=== PATIENT | male | born 1935 | race Caucasian/White ===

== ENCOUNTER → 2016-06-02 | Outpatient (REF) | payer MEDICARE, MEDICAID ==
[2016-06-02 11:18] LABS: MEAN CORPUSCULAR HEMOGLOBIN 27.4 pg (27.0-33.0); MEAN CORPUSCULAR VOLUME 85.6 fl (80.0-96.0); RED CELL DISTRIBUTION WIDTH 14.1 % (11.5-14.5); WHITE BLOOD COUNT 7.5 K/mm3 (4.0-10.0)
[2016-06-02 11:39] LABS: CALCIUM LEVEL 8.4 MG/DL (8.8-10.2); CREATININE FOR GFR 1.51 MG/DL (0.70-1.30); FREE T4 1.31 NG/DL (0.76-1.46); GLOMERULAR FILTRATION RATE 47.6 (>35)
== END ==
LOC: M SFHCPLAZ 08:21
PROVIDERS: ATTEND Family Medicine
DX: N18.3 Chronic kidney disease, stage 3 (moderate) (principal); E03.8 Other specified hypothyroidism; I11.9 Hypertensive heart disease without heart failure

== ENCOUNTER 2017-01-07 22:21 | Emergency (ER) | payer MEDICARE, MEDICAID ==
[~2017-01-07] VITALS: Ht 170.2 cm; Wt 77.3 kg
[2017-01-07 22:21] VITALS: BP 186/90
[2017-01-07] MEDS ORDERED: LEVO50TA5 (22:32)
[2017-01-07] MEDS ORDERED: OMEP20CA3 (22:32)
[2017-01-07] MEDS ORDERED: ATOR40TA75 (22:32)
[2017-01-07] MEDS ORDERED: TRIAMT/HCTZ (22:32)
[2017-01-07] MEDS ORDERED: ASPI81TA85 PO (22:32)
[2017-01-07] MEDS ORDERED: FLEEENE12 PR (23:24)
[2017-01-07] MEDS ORDERED: MAGNESIUM CITRATE 300 ML BTL PO ONE (23:30)
--- NOTE | 2017-01-08 08:50 | REP ---
Clinical: Constipation. Technique: Single supine view of the abdomen and pelvis. Findings: Bowel gas pattern is nonspecific. No organomegaly. No abnormal calcifications. Skeletal structures demonstrate age-related degenerative changes. Impression: Nonspecific bowel gas pattern Signed by Nathan Ly MD 01/08/2017 08:41 A
== END 2017-01-07 23:38 | disposition home or self-care (01) ==
LOC: M ED 22:21
DX: K59.00 Constipation, unspecified (principal); I10 Essential (primary) hypertension; E78.5 Hyperlipidemia, unspecified; E03.9 Hypothyroidism, unspecified; K21.9 Gastro-esophageal reflux disease without esophagitis; Z79.899 Other long term (current) drug therapy; Z79.82 Long term (current) use of aspirin; Z87.891 Personal history of nicotine dependence

== ENCOUNTER 2017-02-02 08:11 | Emergency (ER) | payer MEDICARE, MEDICAID ==
[~2017-02-02] VITALS: Ht 177.8 cm; Wt 78.2 kg
[~2017-02-02 08:11] MED LIST: ASPI81TA85 PO; ATOR40TA75 PO; FLEEENE12 PR; LEVO50TA5 PO; OMEP20CA3 PO; TRIAMT/HCTZ PO
[2017-02-02] MEDS ORDERED: VITA-112 PO (08:23)
[2017-02-02] MEDS ORDERED: FISH100049 PO (08:23)
[2017-02-02 09:18] LABS: MEAN CORPUSCULAR HEMOGLOBIN 27.5 pg (27.0-33.0); PLATELET COUNT, AUTOMATED 296 10^3/uL (150-450); RED CELL DISTRIBUTION WIDTH 14.6 % (11.5-14.5); WHITE BLOOD COUNT 7.4 10^3/uL (4.0-10.0)
[2017-02-02] MEDS ORDERED: ANUS25SU PR (09:35)
[2017-02-02] MEDS ORDERED: COLA100C5 PO (09:35)
[2017-02-02 10:06] VITALS: BP 133/62
[2017-02-06] MEDS ORDERED: COLA100C5 PO (02:16)
[2017-02-06] MEDS ORDERED: DYAZ37.5 PO (02:18)
== END 2017-02-02 10:07 | disposition home or self-care (01) ==
LOC: EDBD 08:11 → M ED 08:11
DX: K62.5 Hemorrhage of anus and rectum (principal); K64.9 Unspecified hemorrhoids; K59.00 Constipation, unspecified; I10 Essential (primary) hypertension; F10.10 Alcohol abuse, uncomplicated; Z79.82 Long term (current) use of aspirin; Z79.899 Other long term (current) drug therapy

== ENCOUNTER 2017-02-05 23:10 | Inpatient (IN) | payer MEDICARE, MEDICAID ==
[2017-02-05] MEDS: NS 500 ML IV (23:30)
[2017-02-06 00:21] LABS: BASO # 0.1 10^3/uL (0.0-0.2); BASO % 0.9 % (0.0-1.0); EOS # 0.1 10^3/uL (0.0-0.50); EOS % 1.4 % (0.0-3.0); IMMATURE GRANULOCYTE # 0.1 10^3/uL (0-0); IMMATURE GRANULOCYTE % 0.8 % (0-0); LYMPH # 1.2 10^3/uL (1.5-4.5); LYMPH % 15.6 % (24.0-44.0); MEAN CORPUSCULAR HEMOGLOBIN 26.8 pg (27.0-33.0); MEAN CORPUSCULAR VOLUME 81.3 fl (80.0-96.0); MONO # 0.9 10^3/uL (0.0-0.8); MONO % 11.4 % (0.0-5.0); NEUTROPHILS # 5.5 10^3/uL (1.8-7.7); NEUTROPHILS % 69.9 % (36.0-66.0); PLATELET COUNT, AUTOMATED 303 10^3/uL (150-450); WHITE BLOOD COUNT 7.9 10^3/uL (4.0-10.0)
[2017-02-06 00:25] LABS: INR 1.06
[2017-02-06 00:31] LABS: LACTIC ACID SEPSIS PROTOCOL 1.6 MMOL/L (0.4-2.0)
[2017-02-06 00:32] LABS: ALBUMIN 2.9 GM/DL (3.2-5.2); ALBUMIN/GLOBULIN RATIO 0.81 (1.00-1.93); ALKALINE PHOSPHATASE 97 U/L (45-117); ALT/SGPT 17 U/L (12-78); ANION GAP 10 MEQ/L (8-16); AST/SGOT 29 U/L (7-37); BILIRUBIN,DIRECT 0.1 MG/DL (0.0-0.2); BILIRUBIN,TOTAL 0.5 MG/DL (0.2-1.0); BLOOD UREA NITROGEN 16 MG/DL (7-18); CALCIUM LEVEL 8.5 MG/DL (8.8-10.2); CARBON DIOXIDE LEVEL 30 MEQ/L (21-32); CHLORIDE LEVEL 98 MEQ/L (98-107); CREATININE FOR GFR 1.32 MG/DL (0.70-1.30); GLOMERULAR FILTRATION RATE 55.4 (>35); GLUCOSE, FASTING 107 MG/DL (83-110); POTASSIUM SERUM 3.7 MEQ/L (3.5-5.1); SODIUM LEVEL 138 MEQ/L (136-145); TOTAL PROTEIN 6.5 GM/DL (6.4-8.2)
[2017-02-06] MEDS ORDERED: ISOVUE-370 76% 100ML VIAL (Q9967) As Ordered (00:43)
[2017-02-06] MEDS ORDERED: ACETAMINOPHEN TAB 650MG DOSE (2X325MG) PO (02:15)
[2017-02-06] MEDS ORDERED: ONDANSETRON 4MG/2ML VIAL (J2405) IV (02:15)
[2017-02-06] MEDS: NS 1,000 ML IV (05:52)
[2017-02-06 06:26] LABS: MEAN CORPUSCULAR HEMOGLOBIN 27.1 pg (27.0-33.0); MEAN CORPUSCULAR HGB CONC 33.1 g/dl (32.0-36.5); MEAN CORPUSCULAR VOLUME 81.9 fl (80.0-96.0); PLATELET COUNT, AUTOMATED 294 10^3/uL (150-450); RED CELL DISTRIBUTION WIDTH 15.3 % (11.5-14.5); WHITE BLOOD COUNT 6.7 10^3/uL (4.0-10.0)
[2017-02-06 06:46] LABS: ANION GAP 7 MEQ/L (8-16); BLOOD UREA NITROGEN 14 MG/DL (7-18); CALCIUM LEVEL 8.2 MG/DL (8.8-10.2); CARBON DIOXIDE LEVEL 30 MEQ/L (21-32); CHLORIDE LEVEL 99 MEQ/L (98-107); CREATININE FOR GFR 1.28 MG/DL (0.70-1.30); GLOMERULAR FILTRATION RATE 57.4 (>35); GLUCOSE, FASTING 106 MG/DL (83-110); POTASSIUM SERUM 3.5 MEQ/L (3.5-5.1); SODIUM LEVEL 136 MEQ/L (136-145)
[2017-02-06] MEDS: OMEPRAZOLE 20 MG CAP PO (08:26)
[2017-02-06] MEDS: ATORVASTATIN 20 MG TAB PO (08:26)
[2017-02-06] MEDS: DOCUSATE SODIUM 100 MG CAP PO (08:26)
[2017-02-06] MEDS ORDERED: OMEGA-3 1050MG CAPSULE PO (09:00)
[2017-02-06 12:04] LABS: MEAN CORPUSCULAR HEMOGLOBIN 27.3 pg (27.0-33.0); MEAN CORPUSCULAR HGB CONC 33.1 g/dl (32.0-36.5); MEAN CORPUSCULAR VOLUME 82.7 fl (80.0-96.0); PLATELET COUNT, AUTOMATED 264 10^3/uL (150-450); RED CELL DISTRIBUTION WIDTH 15.4 % (11.5-14.5); WHITE BLOOD COUNT 6.8 10^3/uL (4.0-10.0)
[2017-02-06] MEDS: LEVOTHYROXINE 50MCG TABLET (0.05MG) PO (15:58)
[2017-02-06 18:46] LABS: MAGNESIUM LEVEL 2.2 MG/DL (1.8-2.4)
[2017-02-07 03:28] LABS: POTASSIUM SERUM 3.5 MEQ/L (3.5-5.1)
[2017-02-07 04:56] LABS: MEAN CORPUSCULAR HEMOGLOBIN 27.1 pg (27.0-33.0); MEAN CORPUSCULAR HGB CONC 33.2 g/dl (32.0-36.5); MEAN CORPUSCULAR VOLUME 81.6 fl (80.0-96.0); PLATELET COUNT, AUTOMATED 285 10^3/uL (150-450); RED CELL DISTRIBUTION WIDTH 15.2 % (11.5-14.5)
[2017-02-07 05:16] LABS: ANION GAP 8 MEQ/L (8-16); BLOOD UREA NITROGEN 13 MG/DL (7-18); CARBON DIOXIDE LEVEL 28 MEQ/L (21-32); CHLORIDE LEVEL 101 MEQ/L (98-107); CREATININE FOR GFR 1.12 MG/DL (0.70-1.30); GLOMERULAR FILTRATION RATE > 60.0 (>35); GLUCOSE, FASTING 98 MG/DL (83-110); POTASSIUM SERUM 3.4 MEQ/L (3.5-5.1); SODIUM LEVEL 137 MEQ/L (136-145)
[2017-02-07] MEDS: DOCUSATE SODIUM 100 MG CAP PO (08:03)
[2017-02-07] MEDS: ATORVASTATIN 20 MG TAB PO (08:03)
[2017-02-07] MEDS: OMEPRAZOLE 20 MG CAP PO (08:04)
[2017-02-07] MEDS: DYAZIDE 37.5/25 CAP (TRIAM/HCTZ) PO (12:05)
[2017-02-07] MEDS: LEVOTHYROXINE 50MCG TABLET (0.05MG) PO (16:44)
[2017-02-08 04:16] LABS: MEAN CORPUSCULAR HEMOGLOBIN 27.3 pg (27.0-33.0); MEAN CORPUSCULAR HGB CONC 33.5 g/dl (32.0-36.5); MEAN CORPUSCULAR VOLUME 81.4 fl (80.0-96.0); PLATELET COUNT, AUTOMATED 261 10^3/uL (150-450); RED CELL DISTRIBUTION WIDTH 15.1 % (11.5-14.5); WHITE BLOOD COUNT 7.4 10^3/uL (4.0-10.0)
[2017-02-08 04:32] LABS: ANION GAP 7 MEQ/L (8-16); BLOOD UREA NITROGEN 12 MG/DL (7-18); CALCIUM LEVEL 7.9 MG/DL (8.8-10.2); CARBON DIOXIDE LEVEL 29 MEQ/L (21-32); CHLORIDE LEVEL 100 MEQ/L (98-107); CREATININE FOR GFR 1.04 MG/DL (0.70-1.30); GLOMERULAR FILTRATION RATE > 60.0 (>35); GLUCOSE, FASTING 107 MG/DL (83-110); POTASSIUM SERUM 3.2 MEQ/L (3.5-5.1); SODIUM LEVEL 136 MEQ/L (136-145)
[2017-02-08] MEDS: DOCUSATE SODIUM 100 MG CAP PO (08:52)
[2017-02-08] MEDS: ATORVASTATIN 20 MG TAB PO (08:52)
[2017-02-08] MEDS: OMEPRAZOLE 20 MG CAP PO (08:52)
[2017-02-08] MEDS: DYAZIDE 37.5/25 CAP (TRIAM/HCTZ) PO (08:53)
[2017-02-08] MEDS: POTASSIUM CHLORIDE 10 MEQ SR TABLET PO (12:31)
[2017-02-08] MEDS: GOLYTELY SOLN 4000 ML BTL PO (16:23)
[2017-02-08] MEDS: LEVOTHYROXINE 50MCG TABLET (0.05MG) PO (16:23)
[2017-02-08] MEDS: BISACODYL 5 MG TAB PO (18:12)
[2017-02-09 05:13] LABS: MEAN CORPUSCULAR HEMOGLOBIN 27.1 pg (27.0-33.0); MEAN CORPUSCULAR HGB CONC 33.3 g/dl (32.0-36.5); MEAN CORPUSCULAR VOLUME 81.2 fl (80.0-96.0); PLATELET COUNT, AUTOMATED 314 10^3/uL (150-450); RED CELL DISTRIBUTION WIDTH 15.1 % (11.5-14.5); WHITE BLOOD COUNT 9.1 10^3/uL (4.0-10.0)
[2017-02-09 05:27] LABS: ANION GAP 9 MEQ/L (8-16); BLOOD UREA NITROGEN 7 MG/DL (7-18); CARBON DIOXIDE LEVEL 25 MEQ/L (21-32); CHLORIDE LEVEL 100 MEQ/L (98-107); CREATININE FOR GFR 1.06 MG/DL (0.70-1.30); GLOMERULAR FILTRATION RATE > 60.0 (>35); GLUCOSE, FASTING 112 MG/DL (83-110); POTASSIUM SERUM 3.2 MEQ/L (3.5-5.1); SODIUM LEVEL 134 MEQ/L (136-145)
[2017-02-09] MEDS: LEVOTHYROXINE 50MCG TABLET (0.05MG) PO (05:33)
[2017-02-09] MEDS: ATORVASTATIN 20 MG TAB PO (08:45)
[2017-02-09] MEDS: DYAZIDE 37.5/25 CAP (TRIAM/HCTZ) PO (08:45)
[2017-02-09] MEDS: OMEPRAZOLE 20 MG CAP PO (08:46)
[2017-02-09] MEDS: POTASSIUM CHLORIDE 10 MEQ SR TABLET PO (08:46)
[2017-02-09] MEDS: DOCUSATE SODIUM 100 MG CAP PO (08:46)
[2017-02-09] MEDS: KCL 10MEQ IN 100ML SWI (KRUN) 10 MEQ in APPROPRIATE DILUENT 1 EA IV ×4 (09:53→13:14)
[2017-02-09 10:17] LABS: MAGNESIUM LEVEL 1.9 MG/DL (1.8-2.4)
[2017-02-09] MEDS ORDERED: PROPOFOL 200 MG/20 ML VIAL As Ordered (15:00)
[2017-02-09] MEDS ORDERED: LIDOCAINE 2% INJ 100 MG/5 ML SDV (FOR ANES.) As Ordered (15:36)
[2017-02-09] MEDS ORDERED: ONDANSETRON 4MG/2ML VIAL (J2405) IV (15:45)
[2017-02-10] MEDS: LEVOTHYROXINE 50MCG TABLET (0.05MG) PO (05:34)
[2017-02-10 06:46] LABS: MEAN CORPUSCULAR HEMOGLOBIN 27.5 pg (27.0-33.0); MEAN CORPUSCULAR HGB CONC 33.2 g/dl (32.0-36.5); PLATELET COUNT, AUTOMATED 332 10^3/uL (150-450); RED CELL DISTRIBUTION WIDTH 15.7 % (11.5-14.5); WHITE BLOOD COUNT 8.4 10^3/uL (4.0-10.0)
[2017-02-10 07:16] LABS: ANION GAP 10 MEQ/L (8-16); BLOOD UREA NITROGEN 9 MG/DL (7-18); CALCIUM LEVEL 8.4 MG/DL (8.8-10.2); CARBON DIOXIDE LEVEL 26 MEQ/L (21-32); CHLORIDE LEVEL 101 MEQ/L (98-107); CREATININE FOR GFR 1.38 MG/DL (0.70-1.30); GLOMERULAR FILTRATION RATE 52.6 (>35); GLUCOSE, FASTING 125 MG/DL (83-110); SODIUM LEVEL 137 MEQ/L (136-145)
[2017-02-10] MEDS: OMEPRAZOLE 20 MG CAP PO (08:40)
[2017-02-10] MEDS: DOCUSATE SODIUM 100 MG CAP PO (08:40)
[2017-02-10] MEDS: POTASSIUM CHLORIDE 10 MEQ SR TABLET PO (08:40)
[2017-02-10] MEDS: ATORVASTATIN 20 MG TAB PO (08:40)
[2017-02-10] MEDS: DYAZIDE 37.5/25 CAP (TRIAM/HCTZ) PO (08:41)
== END 2017-02-10 13:36 | disposition home or self-care (01) | DRG 378 ==
LOC: M ED 23:10 → M PCU 02-09 17:48 → M MSPAV 02-09 20:02 → M ED INP 02-06 02:14 → M PCU 02-06 02:44 → M ED INP 02-06 02:44 → M PCU 02-06 05:13
PROC: 0DJD8ZZ Inspection of Lower Intestinal Tract, Via Natural or Artificial Opening Endoscopic (ICD-10-PCS; principal; 2017-02-09 14:30)
DX: K62.5 Hemorrhage of anus and rectum (principal); C34.81 Malignant neoplasm of overlapping sites of right bronchus and lung; K57.30 Diverticulosis of large intestine without perforation or abscess without bleeding; E87.6 Hypokalemia; I10 Essential (primary) hypertension; E03.9 Hypothyroidism, unspecified; E78.5 Hyperlipidemia, unspecified; K21.9 Gastro-esophageal reflux disease without esophagitis; Z87.891 Personal history of nicotine dependence; Z79.82 Long term (current) use of aspirin; Z79.899 Other long term (current) drug therapy; K64.4 Residual hemorrhoidal skin tags; K64.8 Other hemorrhoids

== ENCOUNTER → 2017-02-23 | Outpatient (REF) | payer MEDICARE, MEDICAID ==
[2017-02-23 14:05] LABS: ANION GAP 8 MEQ/L (8-16); BLOOD UREA NITROGEN 14 MG/DL (7-18); CALCIUM LEVEL 8.6 MG/DL (8.8-10.2); CARBON DIOXIDE LEVEL 28 MEQ/L (21-32); CHLORIDE LEVEL 105 MEQ/L (98-107); CREATININE FOR GFR 1.08 MG/DL (0.70-1.30); GLOMERULAR FILTRATION RATE > 60.0 (>35); GLUCOSE, FASTING 97 MG/DL (83-110); POTASSIUM SERUM 3.8 MEQ/L (3.5-5.1); SODIUM LEVEL 141 MEQ/L (136-145)
== END ==
LOC: M SFHCPLAZ 11:57
DX: I11.9 Hypertensive heart disease without heart failure (principal)
CPT/HCPCS: 80048

== ENCOUNTER 2017-05-17 03:05 | Inpatient (IN) | payer MEDICARE, MEDICAID ==
[2017-05-17] MEDS: IPRATROPIUM 0.5MG/ALBUTEROL 2.5MG INH SOL UD 3ML (DUONEB)(J7620) NEB ×3 (03:23→08:08)
[2017-05-17 03:30] LABS: BASO # 0.1 10^3/uL (0.0-0.2); BASO % 0.7 % (0.0-1.0); EOS # 0.1 10^3/uL (0.0-0.50); EOS % 1.6 % (0.0-3.0); HEMATOCRIT 41.3 % (42.0-52.0); HEMOGLOBIN 12.9 g/dl (13.5-17.5); IMMATURE GRANULOCYTE % 0.3 % (0-3.0); LYMPH # 0.8 10^3/uL (1.5-4.5); LYMPH % 9.2 % (24.0-44.0); MEAN CORPUSCULAR HEMOGLOBIN 24.8 pg (27.0-33.0); MEAN CORPUSCULAR HGB CONC 31.2 g/dl (32.0-36.5); MEAN CORPUSCULAR VOLUME 79.4 fl (80.0-96.0); MONO # 1.1 10^3/uL (0.0-0.8); MONO % 12.7 % (0.0-5.0); NEUTROPHILS # 6.7 10^3/uL (1.8-7.7); NEUTROPHILS % 75.5 % (36.0-66.0); PLATELET COUNT, AUTOMATED 341 10^3/uL (150-450); RED CELL DISTRIBUTION WIDTH 15.4 % (11.5-14.5); WHITE BLOOD COUNT 8.9 10^3/uL (4.0-10.0)
[2017-05-17] MEDS: ASPIRIN 81 MG CHEW TABLET PO (03:38)
[2017-05-17 03:43] LABS: ABG BASE EXCESS -1.9 (-2.0-2.0); ABG HCO3 21.6 MEQ/L (22.0-26.0); ABG O2 SATURATION 97.2 % (95.0-99.0); ABG PARTIAL PRESSURE CO2 33.2 mmHg (35.0-45.0); ABG STANDARD HCO3 22.9 MEQ/L (22.0-26.0); ABG TOTAL CO2 22.6 MEQ/L (23.0-31.0); ABG pH (ARTERIAL) 7.431 UNITS (7.350-7.450)
[2017-05-17] MEDS: FUROSEMIDE 40 MG/4 ML VIAL (J1940) IV (03:45)
[2017-05-17] MEDS ORDERED: ISOVUE-370 76% 100ML VIAL (Q9967) As Ordered (03:55)
[2017-05-17 03:56] LABS: ALBUMIN 2.7 GM/DL (3.2-5.2); ALBUMIN/GLOBULIN RATIO 0.66 (1.00-1.93); ALKALINE PHOSPHATASE 86 U/L (45-117); ALT/SGPT 13 U/L (12-78); ANION GAP 11 MEQ/L (8-16); AST/SGOT 25 U/L (7-37); BILIRUBIN,DIRECT 0.4 MG/DL (0.0-0.2); BLOOD UREA NITROGEN 19 MG/DL (7-18); CARBON DIOXIDE LEVEL 26 MEQ/L (21-32); CHLORIDE LEVEL 102 MEQ/L (98-107); CK-MB VALUE MASS 1.6 NG/ML (<3.6); CPK CREATINE PHOSPHOKINASE 73 U/L (39-308); CREATININE FOR GFR 1.23 MG/DL (0.70-1.30); GLOMERULAR FILTRATION RATE > 60.0 (>35); GLUCOSE, FASTING 111 MG/DL (70-100); MB/CK RELATIVE INDEX 2.19 (< OR =4); NT-PRO BNP 887 PG/ML (<450); POTASSIUM SERUM 3.4 MEQ/L (3.5-5.1); SODIUM LEVEL 139 MEQ/L (136-145); TOTAL PROTEIN 6.8 GM/DL (6.4-8.2); TROPONIN I < 0.02 NG/ML (< 0.10)
[2017-05-17 03:58] LABS: LACTIC ACID SEPSIS PROTOCOL 2.6 MMOL/L (0.4-2.0)
[2017-05-17] MEDS: methylPREDNISolone INJ 125 MG/2 ML VIAL (J2930) IV (04:00)
[2017-05-17] MEDS ORDERED: ONDANSETRON 4MG/2ML VIAL (J2405) IV (04:00)
[2017-05-17 04:12] LABS: FREE THYROXINE INDEX 5.3 % (1.4-3.8); T UPTAKE 36 % (33-40); THYROXINE (T4) 14.7 UG/DL (4.5-12.0)
[2017-05-17] MEDS ORDERED: LORazepam 1 MG TAB PO (04:15)
[2017-05-17] MEDS ORDERED: BISACODYL 10 MG SUPP PR (04:15)
[2017-05-17] MEDS: POTASSIUM CHLORIDE 10 MEQ SR TABLET PO (04:45)
[2017-05-17] MEDS: AZITHROMYCIN INJ 500 MG, VIAL MATE ADAPTER 1 EACH in D5W 250 ML IV (05:00)
[2017-05-17] MEDS: HYOSCYAMINE SULFATE 0.125 MG SUBL TABLET PO (05:01)
[2017-05-17] MEDS: ACETAMINOPHEN TAB 650MG DOSE (2X325MG) PO (05:01)
[2017-05-17] MEDS: SCOPOLAMINE 1MG TRANSDERMAL PATCH TOP (05:34)
[2017-05-17] MEDS: POTASSIUM CHL PWD 20 MEQ PACKET PO (06:09)
[2017-05-17] MEDS: cefTRIAXone SOD 2 GM in D5W MINI-BAG PLUS 50 ML IV (06:09)
[2017-05-17] MEDS: OMEPRAZOLE 20 MG CAP PO (09:14)
[2017-05-17] MEDS: SENOKOT S TAB PO (09:14)
[2017-05-17] MEDS: VITAMIN D 1,000 INTERNATIONAL UNITS TABLET PO (09:14)
[2017-05-17] MEDS: OMEGA-3 1050MG CAPSULE PO (09:14)
[2017-05-17] MEDS: MORPHINE 10MG/0.5ML ORAL CONCENTRATE SOLUTION U/D SL (10:10)
[2017-05-17] MEDS ORDERED: ATORVASTATIN 20 MG TAB PO (21:00)
[2017-05-17] MEDS ORDERED: LEVOTHYROXINE 50MCG TABLET (0.05MG) PO (21:00)
== END 2017-05-17 11:15 | disposition hospice, home (50) | DRG 175 ==
LOC: M ED 03:05 → M ED INP 03:55
DX: I26.99 Other pulmonary embolism without acute cor pulmonale (principal); J96.01 Acute respiratory failure with hypoxia; J44.1 Chronic obstructive pulmonary disease with (acute) exacerbation; C34.01 Malignant neoplasm of right main bronchus; C77.1 Secondary and unspecified malignant neoplasm of intrathoracic lymph nodes; J90 Pleural effusion, not elsewhere classified; Z51.5 Encounter for palliative care; E78.5 Hyperlipidemia, unspecified; E03.9 Hypothyroidism, unspecified; I10 Essential (primary) hypertension; Z66 Do not resuscitate; K57.30 Diverticulosis of large intestine without perforation or abscess without bleeding; K21.9 Gastro-esophageal reflux disease without esophagitis; K64.8 Other hemorrhoids; Z87.891 Personal history of nicotine dependence; Z79.899 Other long term (current) drug therapy